=== PATIENT | male | born 1940 ===

== ENCOUNTER 2025-01-19 10:47 | Outpatient (REF) | payer MEDICARE, SELFPAY ==
--- OUTSIDE RECORDS SUMMARY | 2025-01-19 13:20 | XMS_ITS | Continuity of Care Document ---
Author Organization [place] - [facility], [facility] Address [address] [place] [address] Assessment Encounter Date Assessment Date Assessment LastModified by Organization Details LastModified Time 01/19/2025 01/19/2025 [id number] [place] [id number] (COMPOSITE LAMINATOR) MDM HIGH MUST MEET 2 OUT OF 3 ELEMENTS: PROBLEMS, DATA OR RISK ELEMENT 1: PROBLEMS 1 OR MORE CHRONIC ILLNESS W/SEVERE EXACERBATION, PROGRESSION MAY REQUIRE HOSPITAL LEVEL CARE OR 1 ACUTE OR CHRONIC ILLNESS OR INJURY THAT POSES A THREAT TO LIFE OR BODILY FUNCTION ELEMENT 2: DATA: MUST MEET 2 OF 3 CATEGORIES CATEGORY 1 REVIEW OF PRIOR EXTERNAL NOTES REVIEW OF THE RESULTS ORDERING OF EACH TEST ASSESSMENT REQUIRING INDEPENDENT HISTORIAN(S) CATEGORY 2: INDEPENDENT INTERPRETATION OF TESTS BY ANOTHER PROVIDER/SPECIALI ST CATEGORY 3: DISCUSSION OF MGT OR TEST INTERPRETATION W/EXTERNAL PHYSICIAN/SPECIAL IST ELEMENT 3: RISK HIGH RISK OF MORBIDITY FROM ADDITIONAL DIAGNOSTIC TESTING OR TREATMENT PROVIDER MUST THOROUGHLY DOCUMENT EACH ELEMENT THAT IS COVERED The patient presented to their appointment today for multiple concerns requiring moderate to high-level decision making and took over 40-45 minutes for an adequate and appropriate history, exam, assessment and treatment plan. This appointment was done with an established patient. Not available 01/19/2025 10:41:12 Plan of Treatment Reminders Order Date Submit Date Provider Last Modified By Organization Details Last Modified Time Details Appointments NEW PROBLEM 15 2024 10:15A M DR WOMACK Not available Not available Not available Lab TSH + free T4, serum 2024 025 [facility], [address] [place] [address], [place], [address], 01/19/2025 10:39:38 CMP, serum or plasma 2024 025 [facility], [address] [place] [address], [place], [address], 01/19/2025 10:39:38 CBC w/ auto diff 2024 025 [facility], [address], [place], [address], 01/19/2025 10:39:38 Referral None recorded . Procedures None recorded . Surgeries None recorded . Imaging XR, chest, 2 view 2024 025 [email or web address] [facility] Central Scheduling (Not Breast), [address], [place], [address], 01/19/2025 12:04:00 Medication Orders None recorded . Patient TargetsNo targets recorded. Patient Instructions Encounter Date Encounter Id Patient Instructions Last Modified By Organization Details Last Modified Time 01/19/2025 [id number] shortness of breath: care instructions Not available 01/19/2025 10:39:19 complete PFT w/ post bronchodilator spirometry* ATHENAFAX Not available 01/19/2025 10:40:25 Reason for Referral None Reported. Problems Name Problem SNOMED Code Status Onset Date Resolution Date Notes Provider Name and Address Organization Details Recorded Time Hyperlip idemia 21431323 Active 2021 CALOS CARPENTER [address] [place], [address], [facility] 2 16:49:11 Pain of left shoulder joint 87377191833 937609 Active 2021 OA, needs replaceme nt CALOS CARPENTER [address] [place], [address], [facility] 2 12:48:24 Hypothyr oidism 11095505 Active 2021 CALOS CARPENTER [address] [place], [address], [facility] 2 12:40:37 Pain of right shoulder joint 82030226369 190819 Active 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 Baldev Womack DO [address] [place] [address], [address], [facility] 2 12:17:10 Malignan t melanoma 899254562 Active 2021 CALOS CARPENTER [address] [place] [address], [address], [facility] 2 12:51:34 Pain in left arm 321234921 Active 2021 CALOS CARPENTER [address] [place] [address], [address], [facility] 2 16:49:14 Rotator cuff arthropa thy of left shoulder 81559527716 154243 Active 2021 Baldev Womack DO [address] [place] [address], [address], [facility] 2 12:09:31 Bilatera l ankle joint pain 45496954066 605284 Active 2023 Baldev Womack DO [address] [place] [address], [address], [facility] 4 11:05:35 Bilatera l foot joint pain 54587009849 583439 Active 2023 Baldev Womack DO [address] [place] [address], [address], [facility] 4 11:06:51 Dyspnea 820235243 Active 2024 Baldev Womack DO [address] [place] [address], [address], [facility] 5 10:36:30 Problem Notes None recorded. Medical Equipment None Reported. Allergies No known drug allergies Medications Name Sig Start Date Stop Date Status Note LastModified by Organization Details LastModified Time atorvastati n 40 mg tablet TAKE 1 TABLET BY MOUTH EVERY DAY active Not Available Not Available No t Available doxycycline hyclate 100 mg capsule TAKE 1 CAPSULE BY MOUTH TWICE DAILY WITH FOOD AND WATER FOR 5 DAYS. START ON 09/08 completed Not Available Not Available Not Available aspirin 325 mg tablet TAKE 1 TABLET BY MOUTH DAILY FOR 14 DAYS BEGINNING THE DAY AFTER SURGERY 05/05 completed Not Available Not Available Not Available fluorouraci l 5 % topical cream APPLY TWICE A DAY TO AFFECTED SCALY AREAS FOR SEVERAL WEEKS UNTIL RED AND CRUSTED active Not Available Not Available No t Available acetaminoph en 500 mg tablet TAKE 2 TABLETS BY MOUTH EVERY 8 HOURS AROUND THE CLOCK FOR PAIN 05/05 completed Not Available Not Available Not Available simvastatin 40 mg tablet TAKE 1 TABLET BY MOUTH EVERY EVENING 05/15 completed Not Available Not Available Not Available levothyroxi ne 50 mcg tablet TAKE 1 TABLET BY MOUTH EVERY MORNING ON AN EMPTY STOMACH active Not Available Not Available No t Available docusate sodium 100 mg capsule TAKE 1 CAPSULE BY MOUTH UP TO TWICE A DAY NEEDED FOR CONSTIPAT ION WHILE TAKING NARCOTIC MEDICATIO NS active Not Available Not Available No t Available omeprazole 20 mg capsule,del ayed release TAKE 1 CAPSULE UP TO DAILY WHEN TAKING NAPROSYN 07/06 completed Not Available Not Available Not Available lisinopril 5 mg tablet TAKE 1 TABLET BY MOUTH EVERY DAY 09/08 completed Not Available Not Available Not Available naproxen 500 mg tablet TAKE 1 TABLET BY MOUTH UP TO DAILY WITH FOOD NEEDED FOR PAIN. AVOID CONTINUED USE IF ABLE 07/06 completed Not Available Not Available Not Available oxycodone 5 mg tablet 05/06 completed Not Available Not Available Not Available BinaxNOW COVID-19 Ag Self Test kit TEST DIRECTED TODAY 07/06 completed Not Available Not Available Not Available Vitals Date Recorded Body height Body mass index (BMI) Body weight Heart rate Oxygen saturation Oxygen saturation in Arterial blood by Pulse oximetry Systolic blood pressure Diastolic blood pressure Provider Name and Address Organization Details Last Updated DateTime 5 170.18 cm 27.9 kg/m2 66325.4 4 g 66 /min 96 % 96 % 130 mm[Hg] 84 mm[Hg] [facility] 5 10:18:55 Social History Question Answer Notes LastModified by Organizat ion Details LastModified Time Tobacco Smoking Status Never Smoker [facility] 07/06/2022 12:19:05 What Was The Date Of Your Most Recent Tobacco Screening? 01/19/2025 [email or web address] Information not available 01/19/2025 Do You Or Have You Ever Used Any Other Forms Of Tobacco Or Nicotine? No Information not available 10/05/2022 Sex: Unknown Functional Status None recorded. Mental Status None recorded. Family History Nothing Reported. Medical History No medical history recorded. Immunizations Vaccine Type Date Status Note Provider Nam e and Address Organization Details Recorded Time COVID-19, mRNA, LNP-S, PF, 30 mcg/0.3 mL dose 1 completed Alexandria beck [facility] 07/06/2022 08:14:10 COVID-19, mRNA, LNP-S, PF, 30 mcg/0.3 mL dose 1 completed Alexandria beck [facility] 07/06/2022 08:14:17 COVID-19, mRNA, LNP-S, PF, 30 mcg/0.3 mL dose 1 completed Alexandria beck [facility] 07/06/2022 08:14:27 zoster, unspecified formulation 8 completed Alexandria beck [facility] 07/06/2022 08:14:47 Influenza, split virus, quadrivalent, preservative 1 completed Alexandria beck [facility] 07/06/2022 08:15:02 pneumococcal polysaccharide PPV23 1 completed Alexandria beck [facility] 07/06/2022 08:15:19 [facility] 08:15:32 Past Encounters Encounter ID Performer Location Encounter Start Date Encounter Closed Date Diagnosis/Indication Diagnosis SNOMED-CT Code Diagnosis ICD10 Code Diagnosis Note [id number] Baldev Womack [facility] [address] [address] 01/19/2025 10:08:51 01/19/2025 12:04:00 Hyperlipidemia 29062787 E78.2 here and lab is excellent Hypothyroidism 26920795 E03.8 will cont to have him but will change the dose if necess Depression screening 171 675044 Z13.31 neg Dyspnea 639637802 R06.00 Health Concerns Section Related Observation LastModified by Organization Detai ls LastModified Time None Recorded Concern Status LastModified by Organization Details LastModified Time None Recorded Payers Encounter Date Sequence Insurance Name Policy Number Policy Collier Covered Member ID Collier Member ID Guarantor Name 01/19/2025 1 [facility] (MEDICARE REPLACEMENT/A DVANTAGE - PPO) [id number] Aniket De La Vega [id number] Aniket De La Vega Notes Date Note Type Note Provider Name a nd Address Organization Details Recorded Time 01/19/2025 text/html here for c/o not breathing well over the last couple monthsrelates that he heats with wood and had noticed that it seemed worse at that timehas been burning with wood and has a fireplace insert and had noted a lot of soot on the furniture as of latestates that this has been unusual for him to be inside all the time and this winter he has been inside more Baldev Womack, DO [address], [place], [address], [facility] 01/19/2025 10:41:18
--- OUTSIDE RECORDS SUMMARY | 2025-01-19 13:20 | XMS_ITS | Clinical Summary ---
Author Organization [facility] Address [address] [place] [address] Care Team Providers Care Neck Band Maker Name Role Phone Baldev Mcclain Primary Care Provider [phone] Allergies No known active allergies Medications Medication Sig Dispensed Refills Start Date End Date Status simvastatin (ZOCOR) 10 MG tablet Take 10 mg by mouth nightly. Active levothyroxine (Synthroid) 125 MCG tablet Take 125 mcg by mouth daily on an empty stomach. Active Social History Tobacco Use Types Packs/Day Years Used Date Smoking Tobacco: Never Smokeless Tobacco: Never Alcohol Use Standard Drinks/Week Comments Never 0 (1 standard drink = 0.6 oz pur e alcohol) Sex and Gender Information Value Date Recorded Sex Assigned at Not on file Gender Identity Not on file Sexual Orientation Not on file Last Filed Vital Signs Vital Sign Reading Time Taken Comments Blood Pressure 148/94 08/03/2022 12:32 PM EDT Pulse 91 08/03/2022 12:32 PM EDT Temperature 36.4 ??C (97.6 ??F) 08/03/2022 12:32 PM E DT Respiratory Rate 18 08/03/2022 12:32 PM EDT Oxygen Saturation 96% 08/03/2022 12:32 PM EDT Inhaled Oxygen Concentration - - Weight 78.9 kg (174 lb) 08/03/2022 10:58 AM EDT Height - - Body Mass Index - - Plan of Treatment Health Maintenance Due Date Last Done Comments DTaP/Tdap/Td Vaccines (1 - Tdap) 1959 Pneumococcal Vaccines 50+ (1 of 1 - PCV) 1990 Zoster (Shingles) Vaccine (1 of 2) 1990 RSV Vaccine 60 years and old er and Patients (1 - 1-dose 75+ series) 2015 Influenza Vaccine 06/18/2024 COVID-19 Vaccine (2023-2 5 season) 2024 Hepatitis B Vaccines Aged Out No long er eligible based on patient's age to complete this topic Care Teams Neck Band Maker Relationship Specialty Start Date End Date Baldev Mcclain DO [address] [place] [address] [place] [address] PCP - General 08/03/22
--- OUTSIDE RECORDS SUMMARY | 2025-01-19 13:20 | XMS_ITS | Data Portability ---
Author Organization [facility] Address [address] [place] [address] Assessment Encounter Date Assessment Date Assessment LastModified by Organization Details LastModified Time 05/06/2023 05/06/2023 The patient denies recent falls or recurrent falls. Denies instability, weakness, abnormal gait, or difficulties with movement. The patient wears correct, supportive shoes and is not otherwise severely visually impaired. The patient is full weight bearing and if using the assistance of a cane or walker feels supported and stable with the use of such devices. All medical conditions have been taken into account that may pose a risk for the patient for falls. Home cordelia, carpets and/or rugs do not pose a challenge for the patient. The patient has been educated about the use of vitamin D supplementation for bone health and prevention of hypotensive episodes that may increase risk for fall. All question and concerns were answered to the patient's satisfaction. The patient denies little pleasure in activities they find enjoyable, feeling depressed, difficulties sleeping, feeling tired or having little energy, change in appetite, feeling guilty, overwhelmed or unmotivated. The patient denies suicidal ideation, thoughts of hurting themselves or others. Their mood is appropriate, they show good judgement and clear understanding of the conversation. They are orientated to time, place and person. They are not expressing any concerning thoughts or actions that would need further investigation and treatment for mental health. [email or web address] Not available 05/06/2023 14:19:22 09/08/2024 09/08/2024 doing great amazing physical shape Not available 09/08/2024 11:03:22 01/19/2025 01/19/2025 [id number] [place] [id number] ([employer]) MDM HIGH MUST MEET 2 OUT OF [...] TSH + free T4, serum 2024 025 [facility], [address] [place] [address], [address], 01/19/2025 10:39:38 CMP, serum or plasma 2024 025 [facility], [address] [place] [address], [address], 01/19/2025 10:39:38 CBC w/ auto diff 2024 025 [facility], [address] [place] [address], [address], 01/19/2025 10:39:38 iron + TIBC + ferritin, serum 2023 024 [facility], [address] [place] [address], [address], 05/05/2024 11:07:59 PSA, serum or plasma 2023 024 [facility], [address] [place] [address], [address], 05/05/2024 11:16:01 lipid panel, serum 2023 024 [facility], [address] [place] [address], [address], 05/05/2024 11:07:37 CMP, serum or plasma 2023 024 [facility], [address] [place] [address], [address], 05/05/2024 11:07:37 CBC w/ auto diff 2023 024 [facility], [address] [place] [address], [address], 05/05/2024 11:07:37 hemoglobi n A1c, QN, blood 2023 024 [facility], [address] [place] [address], [address], 05/05/2024 11:07:37 TSH + free T4, serum 2023 024 [facility], [address] [place] [address], [address], 05/05/2024 11:07:37 thyroid peroxidas e (tpo) Ab, serum 2023 024 [facility], [address] [place] [address], [address], 05/05/2024 11:07:37 CMP, serum or plasma [address] [facility] (Outpatient), [address] [place] [address], [address], 05/07/2023 15:04:05 CBC w/ auto diff 2022 023 [facility] (Outpatient), [address] [place], [address], 05/06/2023 14:30:49 TSH + free T4, serum 2022 023 [facility] (Outpatient), [address] [place], [address], 05/06/2023 14:30:49 lipid panel, serum 2022 023 [facility] (Outpatient), [address] [place], [address], 05/06/2023 14:30:49 hemoglobi n A1c, QN, blood 2022 023 [facility] (Outpatient), [address] [place], [address], 05/06/2023 14:30:49 Referral None recorded. Procedures None recorded. Surgeries None recorded. Imaging XR, chest, 2 view 2024 025 [email or web address] Central Scheduling (Not Breast), [address] [place] [address], [address], 01/19/2025 12:04:00 XR, foot, 3 or more view 2023 024 SHARI Not available 09/09/2024 08:13:14 XR, ankle, 3 or more view 2023 024 SHARI Not available 09/09/2024 08:16:53 US, duplex, carotid artery - recheck progressi on of plaque 2023 024 [email or web address] Not available 05/06/2024 08:37:32 US, duplex, carotid artery 2022 023 [email or web address] Not available 05/07/2023 09:12:16 Medication Orders None recorded. Patient TargetsNo targets recorded. Patient Instructions Encounter Date Encounter Id Patient Instructions Last Modified By Organization Details Last Modified Time 01/19/2025 [id number] shortness of breath: care instructions Not available 01/19/2025 10:39:19 complete PFT w/ post bronchodilator spirometry* ATHENAFAX Not available 01/19/2025 10:40:25 Reason for Referral None Reported. Results Created Date Observation Date Name Description Value Unit Range Abnormal Flag Note LastModifiedBy Organization Detail LastModifiedTime 05/14/2005/13/2023 US, duple x, carot id arter y No observ ation record ed. [facility] [address], [place], [address], 05/05/2024 11:13:18 05/18/20 24 05/18/2024 US, sh[place]idale x, carot id arter y No observ ation record ed. [email or web address] [address], [address], 05/19/2024 11:58:54 09/09/2009/08/2024 XR, foot, 3 or more view No observ ation record ed. [address], [address], 09/10/2024 22:04:52 09/09/20 24 09/08/2024 XR, foot, 3 or more view No observ ation record ed. [address], [address], 09/10/2024 22:04:52 09/09/2009/08/2024 XR, ankle , 3 or more view No observ ation record ed. [address], [address], 09/10/2024 22:04:53 09/09/2009/08/2024 XR, ankle , 3 or more view No observ ation record ed. [facility] (Scheduling Dept) [address] [place] [address], [address], 09/10/2024 22:04:53 Result Notes None recorded. Problems Name Problem SNOMED Code Status Onset Date Resolution Date Notes Provider Name and Address Organization Details Recorded Time Hyperlip idemia 16823832 Active 2021 CALOS CARPENTER [address] [place], [address], [facility] 2 16:49:11 Pain of left shoulder joint 16299501715 560778 Active 2021 OA, needs replaceme nt CALOS CARPENTER [address] [place] [address], [address], [facility] 2 12:48:24 Hypothyr oidism 60876931 Active 2021 CALOS CARPENTER [address] [place] [address], [address], [facility] 2 12:40:37 Pain of right shoulder joint 52045287148 616537 Active 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 Baldev Womack DO [address] [place] [address], [address], [facility] 2 12:17:10 Malignan t melanoma 951884119 Active 2021 CALOS CARPENTER [address] [place] [address], [address], [facility] 2 12:51:34 Pain in left arm 073615709 Active 2021 CALOS CARPENTER [address] [place] [address], [address], [facility] 2 16:49:14 Rotator cuff arthropa thy of left shoulder 98919691954 407671 Active 2021 Baldve Womack DO [address] [place] [address], [address], [facility] 2 12:09:31 Bilatera l ankle joint pain 68206406648 859236 Active 2023 Baldev Womack, DO [address] [facility], [place], [address], [place] [facility] 11:05:35 Bilatera l foot joint pain 72876108720 455839 Active 2023 Baldev Womack, DO [address] [place], [address], [place] [facility] 11:06:51 Dyspnea 238819733 Active 2024 Baldev Womack, DO [address] [place], [address], [place] [facility] 10:36:30 Problem Notes None recorded. Procedures Surgical History None recorded. Imaging Results Imaging Date Name Status LastModified by Ganesh holcomb Details LastModified Time 05/13/2023 US, duplex, carotid artery completed [facility] [address], [place], [address], 05/05/2024 11:13:18 05/18/2024 US, duplex, carotid artery completed [email or web address] [address], [address], 05/19/2024 11:58:54 09/08/2024 XR, foot, 3 or more view completed [address], [address], 09/10/2024 22:04:52 09/08/2024 XR, foot, 3 or more view completed [address], [address], 09/10/2024 22:04:52 09/08/2024 XR, ankle, 3 or more view completed [address], [address], 09/10/2024 22:04:53 09/08/2024 XR, ankle, 3 or more view completed [facility] (Scheduling Dept) [address] [facility], [place], [address], 09/10/2024 22:04:53 Procedure Notes None recorded. Medical Equipment None Reported. [...] height Body mass index (BMI) Body weight Oxygen saturation Oxygen saturation in Arterial blood by Pulse oximetry Heart rate Systolic blood pressure Diastolic blood pressure Provider Name and Address Organization Details Last Updated DateTime 3 170.18 cm 28.2 kg/m2 75924.6 3 g 98 % 98 % 67 /min 110 mm[Hg] 68 mm[Hg] Ilana Mock [facility] 3 14:09:53 Date Recorded Body height Body mass index (BMI) Body weight Heart rate Oxygen saturation Oxygen saturation in Arterial blood by Pulse oximetry Systolic blood pressure Diastolic blood pressure Provider Name and Address Organization Details Last Updated DateTime 4 170.18 cm 28.2 kg/m2 02581.6 3 g 62 /min 97 % 97 % 110 mm[Hg] 80 mm[Hg] Ilana Mock [facility] 4 10:53:04 Date Recorded Body height Body mass index (BMI) Body weight Heart rate Oxygen saturation Oxygen saturation in Arterial blood by Pulse oximetry Systolic blood pressure Diastolic blood pressure Provider Name and Address Organization Details Last Updated DateTime 4 170.18 cm 27.6 kg/m2 93246.2 6 g 58 /min 98 % 98 % 112 mm[Hg] 74 mm[Hg] Brayan Sepulveda [facility] 4 10:40:14 Date Recorded Body height Body mass index (BMI) Body weight Heart rate Oxygen saturation Oxygen saturation in Arterial blood by Pulse oximetry Systolic blood pressure Diastolic blood pressure Provider Name and Address Organization Details Last Updated DateTime 5 170.18 cm 27.9 kg/m2 49722.4 4 g 66 /min 96 % 96 % 130 mm[Hg] 84 mm[Hg] Keturah López [facility] 5 10:18:55 Social History Question Answer Notes LastModified by Organizat ion Details LastModified Time Tobacco Smoking Status Never Smoker Alexandria beck [facility] 07/06/2022 12:19:05 What Was The Date Of [...] mcg/0.3 mL dose 1 completed Alexandria beck [facility] 07/06/2022 08:14:10 COVID-19, mRNA, LNP-S, PF, 30 mcg/0.3 mL dose 1 completed Alexandria beck [facility] 07/06/2022 08:14:17 COVID-19, mRNA, LNP-S, PF, 30 mcg/0.3 mL dose 1 completed [place] beck [facility] 07/06/2022 08:14:27 zoster, unspecified formulation 8 completed Alexandria beck [facility] 07/06/2022 08:14:47 Influenza, split virus, quadrivalent, preservative 1 completed Alexandria beck [facility] 07/06/2022 08:15:02 pneumococcal polysaccharide PPV23 1 completed Alexandria bcek [facility] 07/06/2022 08:15:19 Tdap 7 completed [place] beck [facility] 07/06/2022 08:15:32 Past Encounters Encounter ID Performer Location Encounter Start Date Encounter Closed Date Diagnosis/Indication Diagnosis SNOMED-CT Code Diagnosis ICD10 Code Diagnosis Note [id number] CALOS CARPENTER [facility] [address] [facility],[place] [address] 07/06/2022 11:54:13 07/06/2022 13:20:28 Pain of left shoulder joint 8392788949 4295549 M25.512 will fu with referral can schedule appointmen t in the winter Hyperlipidemia 40358878 E78.2 will f/u with 6 mos screening Hypothyroidism 28311420 E03.8 will f/u with routine screening Screening for malignant neoplasm of prostate 564759469 Z12.5 will f/u with screening per patient request Pain of ri ght shoulder joint 1249489902 5812668 M25.511 stable Malignant melanoma 14494 4006 C43.9 followed by [facility] [id number] Baldev Womack DO [facility] [address] [facility],[place] [address] 10/05/2022 11:46:13 10/05/2022 12:57:25 Hyperlipidemia 10729939 E78.2 here Hypothyroidism 40585010 E03.8 will cont to have him Advance care planning 71 8101771 Z71.89 done Active or passive immunization 214118283 Z23 patient advised he is due for flu shot, pneu 13 & shingles Rotator cu ff arthropathy of left shoulder 1542271050 2529800 M25.812 he will certainly need to have this evaluated and he will also need an MRI [id number] CALOS CARPENTER [facility] [address] [facility],[place] [address] 01/28/2023 10:51:48 01/30/2023 08:41:19 Pre-surgery evaluation 743694965 Z01.818 The patient was seen in the office today for pre-op evaluation . All medical conditions on patient's problem list were addressed and are currently stable, no interventi on needed at this time. Based on history and physical performed, the patient is cleared for surgery. [id number] CALOS CARPENTER [facility] [address] [facility],[place] [address] 05/06/2023 14:01:29 05/06/2023 14:45:30 Active or passive immunization 101594876 Z23 advised Adult heal th examination 346022095 Z00.00 BP is excellent Malignant melanoma 83868 4006 C43.0 followed by [facility] Family his tory of stroke 022518037 Z82.3 agreed to US duplex carotid artery Hypothyroidism 38925446 E03.8 will f/u with routine screening [id number] CALOS CARPENTER [facility] [address] [facility],[address] [place] [address] 05/05/2024 10:27:04 05/05/2024 14:12:58 Depression screening 423687919 Z13.31 0 Hypothyroidism 14590152 E03.8 will f/u with routine screening Hyperlipidemia 62354189 E78.2 will f/u with 6 mos screening low [id number] score Malignant melanoma 54948 4006 C43.39 followed by [facility] Family his tory of stroke 462164082 Z82.3 agreed to US duplex carotid artery recheck for progressio n of plaque build up in bilateral carotids Screening for malignant neoplasm of prostate 308970977 Z12.5 will f/u with screening per patient request History of reverse prosthetic total arthroplasty of left shoulder 7960571358 3460263 Z96.612 stable At low risk for fall 439 530113 Z91.81 low risk, Seo fall score calculated to 0 [id number] CALOS CARPENTER [facility] [address] [facility], [facility] [facility] [place] [address] 05/27/2024 20:09:17 05/29/2024 10:17:16 Hyperlipidemia 26611774 E78.2 will f/u with 6 mos screening low [id number] score Hypothyroidism 41550393 E03.8 excellent [id number] Baldev Womack [facility] [address] [facility],[address] [employer] [address] 09/08/2024 10:33:41 09/08/2024 12:14:55 Active or passive immunization 337147632 Z23 patient advised he is due for flu shot, pneu 13 & shingles Adult heal th examination 587555046 Z00.00 doing well no major issues and is staying activestab le no issues reviewed lab in detail Hyperlipidemia 21804517 E78.2 here and lab is excellent Hypothyroidism 28635449 E03.8 will cont to have him Bilateral ankle joint pain 5153905583 6958934 M25.571 M25.572 Bilateral foot joint pain 2741019260 1101669 M79.671 [id number] Baldev Womack [facility] [address] [facility],[place] [place] [address] 01/19/2025 10:08:51 01/19/2025 12:04:00 Hyperlipidemia 63475087 E78.2 here and lab is excellent Hypothyroidism 68650910 E03.8 will cont to have him but will change the dose if necess Depression screening 171 638867 Z13.31 neg Dyspnea 258677017 R06.00 Health Concerns Section Related Observation LastModified by Organization Detai ls LastModified Time None Recorded Concern Status LastModified by Organization Details LastModified Time None Recorded Advance Directives Directive None Recorded Payers Encounter Date Sequence Insurance Name Policy Number Policy Collier Covered Member ID Collier Member ID Guarantor Name 05/06/2023 1 [facility] (MEDICARE REPLACEMENT/A DVANTAGE - PPO) [id number] Aniket De La Vega [id number] Aniket De La Vega 05/05/2024 1 [facility] (MEDICARE REPLACEMENT/A DVANTAGE - PPO) [id number] Aniket De La Vega [id number] Aniket De La Vega 05/27/2024 1 [facility] (MEDICARE REPLACEMENT/A DVANTAGE - PPO) [id number] Aniket De La Vega [id number] Aniket De La Vega 09/08/2024 1 [facility] (MEDICARE REPLACEMENT/A DVANTAGE - PPO) [id number] Aniket De La Vega [id number] Aniket De La Vega 01/19/2025 1 [facility] (MEDICARE REPLACEMENT/A DVANTAGE - PPO) [id number] Aniket De La Vega [id number] Aniket De La Vega Notes Date Note Type Note Provider Name a ne Address Organization Details Recorded Time 3 text/html Annual WellnessReported bypatient.Diet and Nutrition:healthy diet; discussed vitamin and supplement use; discussed portion control; discussed maintaining calcium balance; discussed diet improvement Fracture Risk:no history of fractures; no recent explained fracture; no sudden unexplained fractures; no previous musculoskeletal injuries Physical Activity:exercises on a regular basis; recent increase in physical activity; good physical condition Additional Lifestyle Factors:no tobacco use; drinks alcohol (mild-moderate) Depression Risk:never feels sad, empty, or tearful; no loss of interest in activities; no significant changes in weight; no sleep disturbances or insomnia; no agitation; no loss of energy; no feelings of worthlessness or guilt; no thoughts of suicide; no history of depression; no history of mood disorders Hearing:no loss of hearing Vision:no vision problems the patient's BP is excellent the patient is doing well after his shoulder surgery; going to PT twice per [facility]; the patient sees Dot the patient reports that he was doing wellalready had his post-op with Dr. Obregon > the patient reports he is feeling okay the patient has some pain in his left shoulder post opthe PT and pt have gone over strengthening, just a little weaker than prior all of his family has had a hx of severe strokeagreed to carotid for preventative screening of his carotids CALOS CARPENTER [address] [place], [address], [facility] 05/06/2023 14:42:40 4 text/html f/u patient would like bw hypothyroidism: the patient needs his routine blood work to recheck his thyroid levels HLD: needs recheck of his levels, has a significant family h/x of strokes in his siblings, all three of themthe patient needs a f/u with recheck US carotid to see if there is any progression in the plaque build up in his carotidscurrently on atorvastatin 40 mg which we will continue not currently on a blood thinner, low [id number] scoreno current evidence to support patient starting a blood thinner at this time needs general blood work drawn to monitor his levels for stability would like PSA checked as well, no significant fam h/x of prostate cancer otherwise no other questions, feeling well overallhis shoulder is feeling better since his total shoulder replacement of his left shoulder with CALOS Jiménez [address] [place], [address], [facility] 05/05/2024 11:15:02 4 text/html lab review patient requested follow up to review labs in personcholesterol was good, discussed ways to improve his HDL levelPSA was within range and patient is without symptoms A1c was within range 5.4% without symptomsdoing well otherwise carotid US was also good, no significant stenosis requiring medical intervention at this time patient was satisfied with the explanation of his labs and has no further questions CALOS CARPENTER [address] [place], [address], [facility] 05/27/2024 20:15:20 4 text/html Annual WellnessReported bypatient.Diet and Nutrition:healthy diet Fracture Risk:no history of fractures; no recent explained fracture; no sudden unexplained fractures; no previous musculoskeletal injuries Physical Activity:exercises on a regular basis; recent increase in physical activity; good physical condition Additional Lifestyle Factors:no tobacco use; no alcohol intake; stopped drinking alcohol Depression Risk:never feels sad, empty, or tearful; no loss of interest in activities; no significant changes in weight; no sleep disturbances or insomnia; no agitation; no loss of energy; no feelings of worthlessness or guilt; no thoughts of suicide; no history of depression; no history of mood disorders Hearing:no loss of hearing Vision:no vision problems had and el;evated bp at the hospital but bp has been Baldev Womack DO [address] [place] [address], [address], [facility] 09/08/2024 11:09:52 5 text/html here for c/o not breathing well [...] winter he has been inside more Baldev Womack DO [address] [place] [address], [address], [facility] 01/19/2025 10:41:18
[2025-01-19 13:41] LABS: MANUAL DIFF FLAG NO
[2025-01-19 13:54] LABS: Basophils Percent Auto 0.5 % (0-2); Eosinophils Absolute Auto 0.1 X10*3/uL (0.0-0.4); Eosinophils Percent Auto 1.5 % (0-4); Hematocrit 40.6 % (42.0-52.0); Hemoglobin 13.6 g/dl (14.0-18.0); Imm Gran Abs Auto 0.02 X10*3/uL (0.00-0.03); Imm Gran Pct Auto 0.3 % (0.0-0.4); Lymphocytes Absolute Auto 2.3 X10*3/uL (1.2-4.9); Lymphocytes Percent Auto 34.5 % (20-40); Mean Corpuscular HGB Conc 33.5 g/dl (31.0-36.0); Mean Corpuscular Hemoglobin 29.7 pg (27.0-33.0); Mean Corpuscular Volume 88.6 fL (80.0-98.0); Mean Platelet Volume 10.4 fL (9.4-12.4); Monocytes Absolute Auto 0.8 X10*3/uL (0.1-1.2); Monocytes Percent Auto 11.9 % (2-11); Neutrophils Absolute Auto 3.4 x10*3/uL (2.0-8.3); Neutrophils Percent Auto 51.3 % (45-73); Platelet Count 169 X10*3/uL (160-400); Red Blood Count 4.58 X10*6/uL (4.60-5.80); Red Cell Distribution Width 13.1 % (11.0-16.0); White Blood Count 6.6 X10*3/uL (4.8-10.8)
[2025-01-19 14:41] LABS: Alanine Aminotransferase 22 U/L (0-40); Albumin Level 4.4 g/dL (3.5-5.0); Alkaline Phosphatase 86 U/L (39-117); Anion Gap 14 (12-20); Aspartate Amino Transferase 27 U/L (5-37); Bilirubin Total 0.9 mg/dL (0.0-1.0); Blood Urea Nitrogen 16 mg/dL (9-16); Calcium 9.4 mg/dL (8.4-10.2); Carbon Dioxide 26 mmol/L (22-29); Chloride 108 mmol/L (96-108); Estimated Glomerular Filt Rate > 60; Glucose Random 94 mg/dL (60-115); Potassium 4.8 mmol/L (3.3-5.1); Sodium 143 mmol/L (135-145); Total Protein 7.6 g/dL (6.5-8.0)
[2025-01-19 14:53] LABS: Thyroid Stimulating Hormone 4.34 uIU/mL (0.32-4.0)
[2025-01-19 15:14] LABS: T4 Thyroxine 8.6 ug/dL (4.5-12.0)
== END 2025-01-19 10:48 | disposition home or self-care (01) ==
LOC: HO.MANLDS 10:47
PROVIDERS: Visit Provider Internal Medicine
DX: E78.2 Mixed hyperlipidemia (principal); E03.8 Other specified hypothyroidism
CPT/HCPCS: 36415; 80053; 84436; 84443; 85025